=== PATIENT | male | born 1955 | race African-American/Black ===

== ENCOUNTER 2018-02-08 04:56 | Emergency (ER) | payer OTHER ==
[~2018-02-08] VITALS: Ht 167.6 cm; Wt 67.0 kg
[~2018-02-08 04:56] MED LIST: AMLO10TA80 PO; LISI10TA5 PO; MECL-109 PO
[2018-02-08] MEDS ORDERED: ALBUTEROL (0.083%) 2.5MG/3ML NEB HHN STA ×2 (05:35→06:49)
[2018-02-08] MEDS ORDERED: DEXAMETHASONE 10 MG/ML VIAL IM ONE (05:45)
[2018-02-08 06:06] LABS: HEMATOCRIT. 45.2 % (42.0-52.0); HEMOGLOBIN. 15.3 g/dL (14.0-18.0); MEAN CORPUSCULAR VOLUME 94.2 fL (80.0-94.0); MEAN PLATELET VOLUME 8.3 fl (7.4-10.4); PLATELET 210 x1000/uL (130-400); RED BLOOD CELL COUNT 4.79 mill/uL (4.7-6.1); RED CELL DISTRIBUTION WIDTH 14.4 % (11.6-14.6)
[2018-02-08 06:07] LABS: CHLORIDE 107 mEq/L (98-107)
[2018-02-08] MEDS ORDERED: IPRATROPIUM BROMIDE (0.02%) 0.5MG/2.5ML NEB HHN STA (06:49)
[2018-02-08 06:55] LABS: INR 1.1; PROTHROMBIN TIME 11.9 sec (9.4-11.6)
[2018-02-08 09:20] VITALS: BP 141/81
[2018-02-08 10:43] LABS: PLATELET ESTIMATE NORMAL
== END 2018-02-08 09:22 | disposition home or self-care (01) ==
LOC: ER 04:56
DX: J98.01 Acute bronchospasm (principal); I10 Essential (primary) hypertension; Z98.890 Other specified postprocedural states; Z87.891 Personal history of nicotine dependence
CPT/HCPCS: 36415; 71045; 80053; 83880; 84484; 85025; 85610; 87804; 93005; 94640; 96372; 99285; J1100; J7611